=== PATIENT | female | born 1995 | race Caucasian/White ===

== ENCOUNTER → 2017-10-25 13:22 | Outpatient (CLI) | payer MEDICAID | END | disposition home or self-care (01) | LOC: D.RAD 13:22 | DX: R07.1 Chest pain on breathing (principal) ==

== ENCOUNTER 2019-02-03 00:22 | Emergency (ER) | payer MEDICAID ==
[~2019-02-03] VITALS: Ht 162.6 cm; Wt 50.0 kg
[2019-02-03 00:34] VITALS: BP 128/89; Ht 162.6 cm; Wt 50.0 kg
== END 2019-02-03 01:20 | disposition left against medical advice (07) ==
LOC: D.ER 00:22
DX: S61.451A Open bite of right hand, initial encounter (principal); W54.0XXA Bitten by dog, initial encounter; Y93.89 Activity, other specified; Y92.89 Other specified places as the place of occurrence of the external cause